=== PATIENT | male | born 1960 | race African-American/Black ===

== ENCOUNTER 2024-03-08 17:48 | Inpatient (IN) | payer MEDICARE ==
[~2024-03-08] VITALS: Ht 182.9 cm; Wt 116.6 kg
[2024-03-08] MEDS ORDERED: VERAPAMIL HCL 2.5 MG/1 ML 2ML VIAL IV ONE (17:57)
[2024-03-08] MEDS ORDERED: DIPHENHYDRAMINE 50MG/ML VIAL ONE (17:57)
[2024-03-08] MEDS ORDERED: EPINEPHRINE 0.1MG/ML (1:10,000) 10ML SYR ONE (17:57)
[2024-03-08] MEDS ORDERED: IODIXANOL 320MG/ML 100 ML BOTTLE IV ONE (17:58)
[2024-03-08] MEDS ORDERED: LIDOCAINE HCL 1% 20ML VIAL ONE (17:58)
[2024-03-08] MEDS ORDERED: MIDAZOLAM HCL 2 MG/2 ML VIAL ONE ×4 (17:58→20:36)
[2024-03-08] MEDS ORDERED: HEPARIN 1,000 UNITS PREMIX 1,500 ML IV ONE (17:58)
[2024-03-08] MEDS ORDERED: ATROPINE SULFATE 1MG/10ML SYR ONE (17:58)
[2024-03-08] MEDS ORDERED: FENTANYL CITRATE/PF 50MCG/ML 2ML VIAL ONE ×2 (17:58→20:23)
[2024-03-08] MEDS ORDERED: HEPARIN 1000 UNITS/ML 10ML ONE ×3 (17:58→19:51)
[2024-03-08] MEDS: AMIODARONE HCL 50MG/ML 3ML VIAL IV ONE (18:08)
[2024-03-08] MEDS ORDERED: DIGOXIN 500MCG/2ML AMP IV NR (18:11)
[2024-03-08] MEDS: ADENOSINE 3 MG/ML 2ML VIAL IV ONE ×2 (18:27)
[2024-03-08] MEDS ORDERED: DIGOXIN 500MCG/2ML AMP IV ONE (18:30)
[2024-03-08] MEDS ORDERED: METOPROLOL TARTRATE 5MG/5ML VIAL IV ONE (18:36)
[2024-03-08] MEDS ORDERED: AMIODARONE HCL 50MG/ML 3ML VIAL IV ONE (18:39)
[2024-03-08] MEDS ORDERED: AMIODARONE HCL 900 MG in DEXT 5% WATER 500 ML IV PRN (18:45)
[2024-03-08 19:06] LABS: BASOPHILS % 0.3 % (0.0-2.0); HEMATOCRIT. 45.3 % (42.0-52.0); HEMOGLOBIN. 14.9 g/dL (14.0-18.0); LYMPHOCYTES % 8.8 % (20.0-50.0); MEAN CORPUSCULAR HGB CONC 32.8 g/dL (31.0-37.0); MEAN CORPUSCULAR VOLUME 82.4 fL (80.0-94.0); MEAN PLATELET VOLUME 9.2 fl (7.4-10.4); MONOCYTES % 12.1 % (2.0-8.0); NEUTROPHILS % 78.8 % (40.0-76.0); PLATELET 282 x1000/uL (130-400); RED CELL DISTRIBUTION WIDTH 15.2 % (11.6-14.6); WHITE BLOOD COUNT 15.9 x1000/uL (4.5-11.0)
[2024-03-08 19:15] VITALS: PULSE 111; RESP 21
[2024-03-08 19:19] LABS: CHLORIDE 98 mEq/L (98-107); POTASSIUM 3.1 mEq/L (3.5-5.1); SODIUM 135 mEq/L (136-145)
[2024-03-08 19:20] LABS: CALCIUM 9.4 mg/dL (8.7-10.4); CARBON DIOXIDE 22 mEq/L (21-32)
[2024-03-08 19:21] LABS: INR 1.1; PARTIAL THROMBOPLASTIN TIME 27.1 sec (23.4-31.0); PROTHROMBIN TIME 11.9 sec (9.6-11.0)
[2024-03-08 19:25] LABS: CREATININE 1.3 mg/dL (0.6-1.3); GLUCOSE 162 mg/dL (70-105); UREA NITROGEN BLOOD 17 mg/dL (9-23)
[2024-03-08 19:27] LABS: ALANINE AMINOTRANSFERASE 57 IU/L (10-49); ALBUMIN 4.2 g/dL (3.2-4.8); ASPARTATE AMINOTRANSFERASE 155 IU/L (<34); BILIRUBIN TOTAL 1.5 mg/dL (0.1-1.0); PROTEIN TOTAL 7.1 g/dL (6.0-8.3)
[2024-03-08] MEDS ORDERED: IODIXANOL 320 MG/ML 150ML BOTTLE IV ONE (19:28)
[2024-03-08 19:49] LABS: TROPONIN I HIGH SENSITIVITY 20057 ng/L (3.0-53)
[2024-03-08] MEDS ORDERED: TICAGRELOR 90 MG TABLET PO ONE (19:50)
[2024-03-08] MEDS ORDERED: HYDRALAZINE 20MG/ML VIAL ONE (19:56)
[2024-03-08] MEDS ORDERED: ACETAMINOPHEN 325MG TABLET PO PRN (20:00)
[2024-03-08] MEDS ORDERED: ATROPINE SULFATE 1MG/10ML SYR IV PRN (20:00)
[2024-03-08] MEDS ORDERED: CEFAZOLIN SODIUM 1000MG/VIAL ONE (20:01)
[2024-03-08] MEDS ORDERED: PROPOFOL 200MG/20ML VIAL IV PRN (20:45)
[2024-03-08] MEDS ORDERED: PROPOFOL 10MG/ML 100ML 100 ML IV PRN (20:51)
[2024-03-08] MEDS ORDERED: PROPOFOL 10MG/ML 100ML 100 ML IV ONE (20:57)
[2024-03-08] MEDS: METOPROLOL TARTRATE 25MG TABLET PO SCH (21:00)
[2024-03-08 22:00] VITALS: PULSE 108; RESP 22
[2024-03-08 22:33] VITALS: BP 131/89; PULSE 100; RESP 15; TEMP 98.6
[2024-03-08 22:53] LABS: BG BASE EXCESS -1.1 mmol/L (-2.0-2.0); BG CARBOXYHEMOGLOBIN 0.5 % (0.5-1.5); BG DEOXYHEMOGLOBIN 14.1 % (0.0-5.0); BG FRACTION INSPIRED OXYGEN 90; BG HCO3 ACT 23.9 mmol/L (22.0-26.0); BG METHEMOGLOBIN 0.2 % (0.0-1.5); BG OXYGEN SATURATION 85.8 % (92.0-98.5); BG OXYHEMOGLOBIN 85.2 % (94.0-97.0); BG PCO2 41.4 mmHg (35.0-45.0); BG PO2 55.6 mmHg (75.0-100.0); BG SAMPLE SITE RIGHT RADIAL; BG TOTAL HEMOGLOBIN 14.7 g/dL (12.0-18.0); BG VENT MODE VENT - AC
[2024-03-08 23:55] VITALS: PULSE 99; RESP 24
[2024-03-09] VITALS (108 sets, daily range): BP systolic 78–137; BP diastolic 60–97; PULSE 90–176; RESP 17–29; TEMP 97.1–99.2
[2024-03-09 00:29] LABS: TROPONIN I HIGH SENSITIVITY 90165 ng/L (3.0-53)
[2024-03-09] MEDS: PROPOFOL 10MG/ML 100ML 100 ML IV PRN (02:19)
[2024-03-09] MEDS: NOREPINEPHRINE 8MG/250ML PMX 250 ML IV PRN (02:22)
[2024-03-09] MEDS: KCL 20MEQ/100ML PREMIX 100 ML IV SCH (05:00)
[2024-03-09 05:03] LABS: BASOPHILS % 0.1 % (0.0-2.0); HEMATOCRIT. 40.7 % (42.0-52.0); HEMOGLOBIN. 13.3 g/dL (14.0-18.0); LYMPHOCYTES % 9.1 % (20.0-50.0); MEAN CORPUSCULAR HEMOGLOBIN 26.9 pg (28.0-32.0); MEAN CORPUSCULAR HGB CONC 32.6 g/dL (31.0-37.0); MEAN CORPUSCULAR VOLUME 82.4 fL (80.0-94.0); MEAN PLATELET VOLUME 8.7 fl (7.4-10.4); MONOCYTES % 12.2 % (2.0-8.0); NEUTROPHILS % 78.6 % (40.0-76.0); PLATELET 234 x1000/uL (130-400); RED BLOOD CELL COUNT 4.94 mill/uL (4.7-6.1); RED CELL DISTRIBUTION WIDTH 15.1 % (11.6-14.6); WHITE BLOOD COUNT 13.1 x1000/uL (4.5-11.0)
[2024-03-09 05:11] LABS: CHLORIDE 100 mEq/L (98-107); POTASSIUM 2.9 mEq/L (3.5-5.1); SODIUM 138 mEq/L (136-145)
[2024-03-09 05:12] LABS: CALCIUM 8.5 mg/dL (8.7-10.4); CARBON DIOXIDE 26 mEq/L (21-32)
[2024-03-09 05:17] LABS: CREATININE 0.8 mg/dL (0.6-1.3); GLUCOSE 137 mg/dL (70-105)
[2024-03-09 05:18] LABS: UREA NITROGEN BLOOD 14 mg/dL (9-23)
[2024-03-09 05:20] LABS: PHOSPHORUS 2.4 mg/dL (2.5-4.9)
[2024-03-09] MEDS ORDERED: METOPROLOL TARTRATE 5MG/5ML VIAL IV PRN (08:30)
[2024-03-09] MEDS: AMIODARONE HCL 150 MG in DEXT 5% WATER 97 ML IV ONE (08:43)
[2024-03-09] MEDS: METOPROLOL TARTRATE 50MG TABLET PO SCH (08:44)
[2024-03-09] MEDS: ASPIRIN 325MG TABLET PO SCH (08:44)
[2024-03-09] MEDS: AMIODARONE 150MG/100ML 100 ML IV NR (08:49)
[2024-03-09 09:38] LABS: BG BASE EXCESS 1.9 mmol/L (-2.0-2.0); BG CARBOXYHEMOGLOBIN 0.2 % (0.5-1.5); BG DEOXYHEMOGLOBIN 0.3 % (0.0-5.0); BG FRACTION INSPIRED OXYGEN 100; BG HCO3 ACT 24.6 mmol/L (22.0-26.0); BG METHEMOGLOBIN 0.3 % (0.0-1.5); BG OXYGEN SATURATION 99.7 % (92.0-98.5); BG OXYHEMOGLOBIN 99.2 % (94.0-97.0); BG PCO2 33.3 mmHg (35.0-45.0); BG PH 7.487 (7.350-7.450); BG PO2 377.9 mmHg (75.0-100.0); BG SAMPLE SITE RIGHT RADIAL; BG TOTAL HEMOGLOBIN 15.5 g/dL (12.0-18.0); BG VENT MODE VENT - AC
[2024-03-09] MEDS: TICAGRELOR 90 MG TABLET PO SCH (10:05)
[2024-03-09] MEDS: AMIODARONE HCL 900 MG in DEXT 5% WATER 482 ML IV PRN (10:44)
[2024-03-09] MEDS: KCL 10MEQ/50ML PREMIX 50 ML IV SCH (10:52)
[2024-03-09] MEDS ORDERED: PHENYLEPHRINE 50MG/250ML PMX 250 ML IV PRN (11:30)
[2024-03-09] MEDS: PANTOPRAZOLE SODIUM 40 MG/VIAL IV SCH (13:13)
[2024-03-09 15:18] LABS: CHLORIDE 102 mEq/L (98-107); POTASSIUM 3.5 mEq/L (3.5-5.1); SODIUM 138 mEq/L (136-145)
[2024-03-09 15:19] LABS: CARBON DIOXIDE 25 mEq/L (21-32)
[2024-03-09] MEDS: CEFTRIAXONE 2GM/50ML 50 ML IV SCH (19:53)
[2024-03-10] VITALS (103 sets, daily range): BP systolic 82–128; BP diastolic 58–92; PULSE 86–125; RESP 0–37; TEMP 98.3–100.1
[2024-03-10] MEDS: PROPOFOL 10MG/ML 100ML 100 ML IV PRN (00:07)
[2024-03-10 05:01] LABS: CARBON DIOXIDE 25 mEq/L (21-32); CHLORIDE 102 mEq/L (98-107); POTASSIUM 3.1 mEq/L (3.5-5.1); SODIUM 138 mEq/L (136-145)
[2024-03-10 05:02] LABS: CALCIUM 8.4 mg/dL (8.7-10.4)
[2024-03-10 05:07] LABS: CREATININE 0.8 mg/dL (0.6-1.3); GLUCOSE 133 mg/dL (70-105); TRIGLYCERIDE 219 mg/dL (0-150); UREA NITROGEN BLOOD 12 mg/dL (9-23)
[2024-03-10 05:35] LABS: HEMATOCRIT. 38.5 % (42.0-52.0); HEMOGLOBIN. 12.6 g/dL (14.0-18.0); MEAN CORPUSCULAR HEMOGLOBIN 27.2 pg (28.0-32.0); MEAN CORPUSCULAR HGB CONC 32.9 g/dL (31.0-37.0); MEAN CORPUSCULAR VOLUME 82.8 fL (80.0-94.0); PLATELET 190 x1000/uL (130-400); RED BLOOD CELL COUNT 4.65 mill/uL (4.7-6.1); RED CELL DISTRIBUTION WIDTH 15.8 % (11.6-14.6); WHITE BLOOD COUNT 9.6 x1000/uL (4.5-11.0)
[2024-03-10 07:55] LABS: DIFFERENTIAL COMMENT 1
[2024-03-10 08:29] LABS: BG BASE EXCESS 2.8 mmol/L (-2.0-2.0); BG CARBOXYHEMOGLOBIN 0.1 % (0.5-1.5); BG DEOXYHEMOGLOBIN 2.4 % (0.0-5.0); BG HCO3 ACT 25.9 mmol/L (22.0-26.0); BG METHEMOGLOBIN 0.1 % (0.0-1.5); BG OXYGEN SATURATION 97.6 % (92.0-98.5); BG OXYHEMOGLOBIN 97.4 % (94.0-97.0); BG PCO2 34.7 mmHg (35.0-45.0); BG PO2 99.6 mmHg (75.0-100.0); BG SAMPLE SITE RIGHT RADIAL; BG VENT MODE VENT - AC
[2024-03-10] MEDS ORDERED: LIDOCAINE HCL 1% 10 MG/ML 10ML VIAL ONE (08:39)
[2024-03-10] MEDS: POTASSIUM PHOSPHATE 30 MMOL in DEXT 5% WATER 490 ML IV NR (09:20)
[2024-03-10] MEDS: ASPIRIN 81MG TABLET PO SCH (09:20)
[2024-03-10 15:21] LABS: CLARITY URINE CLOUDY (CLEAR); COLOR URINE DARK YELLOW (YELLOW); GLUCOSE URINE NEGATIVE (NEGATIVE); KETONES URINE 1+ (NEGATIVE); LEUKOCYTE ESTERASE URINE 1+ (NEGATIVE); NITRITE URINE NEGATIVE (NEGATIVE); OCCULT BLOOD URINE 2+ (NEGATIVE); PROTEIN URINE 1+ (NEGATIVE); SPECIFIC GRAVITY URINE 1.039 (1.005-1.030)
[2024-03-10 15:49] LABS: BACTERIA URINE 2+; SQUAMOUS EPITHELIAL CELL URINE 1+ /lpf (RARE/1+)
[2024-03-10 15:50] LABS: RBC URINE 25-50 /hpf (0-2)
[2024-03-10 15:51] LABS: AMORPHOUS SEDIMENT URINE 1+ /lpf
[2024-03-10 18:48] LABS: PLATELET ESTIMATE NORMAL
[2024-03-11] VITALS (73 sets, daily range): BP systolic 99–137; BP diastolic 61–92; PULSE 78–109; RESP 21–32; TEMP 98.6–99.5
[2024-03-11] MEDS: PROPOFOL 10MG/ML 100ML 100 ML IV PRN (02:48)
[2024-03-11 04:51] LABS: BASOPHILS % 0.2 % (0.0-2.0); HEMATOCRIT. 37.1 % (42.0-52.0); HEMOGLOBIN. 12.1 g/dL (14.0-18.0); LYMPHOCYTES % 9.7 % (20.0-50.0); MEAN CORPUSCULAR HEMOGLOBIN 27.2 pg (28.0-32.0); MEAN CORPUSCULAR HGB CONC 32.6 g/dL (31.0-37.0); MEAN CORPUSCULAR VOLUME 83.5 fL (80.0-94.0); MONOCYTES % 13.6 % (2.0-8.0); NEUTROPHILS % 75.5 % (40.0-76.0); PLATELET 185 x1000/uL (130-400); RED BLOOD CELL COUNT 4.44 mill/uL (4.7-6.1); RED CELL DISTRIBUTION WIDTH 15.5 % (11.6-14.6); WHITE BLOOD COUNT 9.9 x1000/uL (4.5-11.0)
[2024-03-11 05:07] LABS: CARBON DIOXIDE 27 mEq/L (21-32); CHLORIDE 101 mEq/L (98-107); POTASSIUM 3.1 mEq/L (3.5-5.1); SODIUM 138 mEq/L (136-145)
[2024-03-11 05:08] LABS: CALCIUM 8.3 mg/dL (8.7-10.4)
[2024-03-11 05:12] LABS: CREATININE 0.7 mg/dL (0.6-1.3); GLUCOSE 132 mg/dL (70-105)
[2024-03-11 05:13] LABS: TRIGLYCERIDE 211 mg/dL (0-150); UREA NITROGEN BLOOD 10 mg/dL (9-23)
[2024-03-11] MEDS: AMIODARONE HCL 200 MG TABLET PO SCH (09:31)
[2024-03-11] MEDS: POTASSIUM CHLORIDE 20MEQ TABLET SR PO NR (10:48)
[2024-03-11 12:09] LABS: BG BASE EXCESS 1.2 mmol/L (-2.0-2.0); BG CALCIUM 1.11 mmol/L (1.13-1.32); BG CHLORIDE 102 mmol/L (98-106); BG FRACTION INSPIRED OXYGEN 40; BG HCO3 ACT 23.9 mmol/L (22.0-26.0); BG METHEMOGLOBIN 0.6 % (0.0-1.5); BG OXYHEMOGLOBIN 97.4 % (94.0-97.0); BG PCO2 32.2 mmHg (35.0-45.0); BG PH 7.489 (7.350-7.450); BG PO2 106.6 mmHg (75.0-100.0); BG POTASSIUM 3.44 mmol/L (3.50-5.30); BG SAMPLE SITE RIGHT RADIAL; BG SODIUM 138.3 mmol/L (135.0-148.0); BG TOTAL HEMOGLOBIN 12.7 g/dL (12.0-18.0); BG VENT MODE VENT - SIMV
[2024-03-11] MEDS: LOSARTAN 25 MG TABLET PO SCH (15:35)
[2024-03-11] MEDS: FUROSEMIDE 40MG/4ML VIAL IVP SCH (15:36)
[2024-03-11] MEDS: SPIRONOLACTONE 25 MG/5 ML ORAL.SUSP NG SCH (15:46)
[2024-03-11] MEDS ORDERED: SPIRONOLACTONE 50MG TABLET PO SCH (16:00)
[2024-03-11 19:08] LABS: QFT MITOGEN VALUE 4.31 IU/mL (.); QFT TB GOLD PLUS Positive (Negative); QFT TB1 AG VALUE 0.51 IU/mL (.); QFT TB2 AG VALUE 0.77 IU/mL (.)
[2024-03-12] VITALS (68 sets, daily range): BP systolic 103–163; BP diastolic 61–93; PULSE 72–110; RESP 21–33; TEMP 98.2–99.5
[2024-03-12] MEDS: PROPOFOL 10MG/ML 100ML 100 ML IV PRN ×2 (01:14→23:19)
[2024-03-12 04:22] LABS: BASOPHILS % 0.1 % (0.0-2.0); EOSINOPHILS % 1.4 % (0.0-5.0); HEMATOCRIT. 37.9 % (42.0-52.0); HEMOGLOBIN. 12.3 g/dL (14.0-18.0); LYMPHOCYTES % 8.4 % (20.0-50.0); MEAN CORPUSCULAR HGB CONC 32.4 g/dL (31.0-37.0); MEAN CORPUSCULAR VOLUME 83.3 fL (80.0-94.0); MONOCYTES % 12.2 % (2.0-8.0); NEUTROPHILS % 77.9 % (40.0-76.0); PLATELET 213 x1000/uL (130-400); RED BLOOD CELL COUNT 4.55 mill/uL (4.7-6.1); RED CELL DISTRIBUTION WIDTH 15.7 % (11.6-14.6); WHITE BLOOD COUNT 9.7 x1000/uL (4.5-11.0)
[2024-03-12 04:28] LABS: CARBON DIOXIDE 27 mEq/L (21-32); CHLORIDE 102 mEq/L (98-107); POTASSIUM 3.2 mEq/L (3.5-5.1); SODIUM 139 mEq/L (136-145)
[2024-03-12 04:30] LABS: CALCIUM 8.6 mg/dL (8.7-10.4)
[2024-03-12 04:34] LABS: CREATININE 0.7 mg/dL (0.6-1.3); GLUCOSE 108 mg/dL (70-105); TRIGLYCERIDE 191 mg/dL (0-150); UREA NITROGEN BLOOD 10 mg/dL (9-23)
[2024-03-12 08:43] LABS: BG BASE EXCESS 2.9 mmol/L (-2.0-2.0); BG CARBOXYHEMOGLOBIN 0.3 % (0.5-1.5); BG DEOXYHEMOGLOBIN 2.4 % (0.0-5.0); BG FRACTION INSPIRED OXYGEN 40; BG HCO3 ACT 26.3 mmol/L (22.0-26.0); BG OXYGEN SATURATION 97.6 % (92.0-98.5); BG OXYHEMOGLOBIN 97.3 % (94.0-97.0); BG PH 7.481 (7.350-7.450); BG PO2 112.2 mmHg (75.0-100.0); BG SAMPLE SITE RIGHT RADIAL; BG TOTAL HEMOGLOBIN 12.9 g/dL (12.0-18.0); BG VENT MODE VENT - SIMV
[2024-03-12] MEDS: KCL 20MEQ/100ML PREMIX 100 ML IV SCH (10:11)
[2024-03-13] VITALS (79 sets, daily range): BP systolic 102–155; BP diastolic 58–94; PULSE 75–131; RESP 20–33; TEMP 98.2–99.3; O2SAT 99
[2024-03-13 05:23] LABS: CHLORIDE 103 mEq/L (98-107); POTASSIUM 3.6 mEq/L (3.5-5.1); SODIUM 140 mEq/L (136-145)
[2024-03-13 05:24] LABS: CALCIUM 8.8 mg/dL (8.7-10.4); CARBON DIOXIDE 27 mEq/L (21-32)
[2024-03-13 05:29] LABS: CREATININE 0.7 mg/dL (0.6-1.3); GLUCOSE 127 mg/dL (70-105); TRIGLYCERIDE 197 mg/dL (0-150); UREA NITROGEN BLOOD 13 mg/dL (9-23)
[2024-03-13 05:35] LABS: HEMATOCRIT. 40.1 % (42.0-52.0); HEMOGLOBIN. 12.6 g/dL (14.0-18.0); MEAN CORPUSCULAR HEMOGLOBIN 26.1 pg (28.0-32.0); MEAN CORPUSCULAR HGB CONC 31.4 g/dL (31.0-37.0); MEAN CORPUSCULAR VOLUME 83.4 fL (80.0-94.0); MEAN PLATELET VOLUME 8.8 fl (7.4-10.4); PLATELET 221 x1000/uL (130-400); RED BLOOD CELL COUNT 4.81 mill/uL (4.7-6.1); RED CELL DISTRIBUTION WIDTH 15.3 % (11.6-14.6); WHITE BLOOD COUNT 11.4 x1000/uL (4.5-11.0)
[2024-03-13 05:38] LABS: DIFFERENTIAL COMMENT 1
[2024-03-13 06:15] LABS: GIANT PLATELETS FEW; PLATELET ESTIMATE NORMAL
[2024-03-13 06:16] LABS: TEAR DROP CELLS 2+
[2024-03-13 10:55] LABS: BG BASE EXCESS 5.2 mmol/L (-2.0-2.0); BG CARBOXYHEMOGLOBIN 0.3 % (0.5-1.5); BG DEOXYHEMOGLOBIN 1.9 % (0.0-5.0); BG FRACTION INSPIRED OXYGEN 40; BG HCO3 ACT 28.5 mmol/L (22.0-26.0); BG OXYGEN SATURATION 98.1 % (92.0-98.5); BG OXYHEMOGLOBIN 97.8 % (94.0-97.0); BG PCO2 37.3 mmHg (35.0-45.0); BG PH 7.501 (7.350-7.450); BG PO2 101.1 mmHg (75.0-100.0); BG SAMPLE SITE LEFT RADIAL; BG TOTAL HEMOGLOBIN 14.6 g/dL (12.0-18.0); BG VENT MODE VENT - CPAP
[2024-03-14] VITALS (71 sets, daily range): BP systolic 74–155; BP diastolic 50–129; PULSE 71–109; RESP 7–35; TEMP 98.2–98.5
[2024-03-14 12:30] LABS: BASOPHILS % 0.8 % (0.0-2.0); EOSINOPHILS % 3.1 % (0.0-5.0); HEMATOCRIT. 41.5 % (42.0-52.0); HEMOGLOBIN. 13.3 g/dL (14.0-18.0); LYMPHOCYTES % 8.1 % (20.0-50.0); MEAN CORPUSCULAR HEMOGLOBIN 26.5 pg (28.0-32.0); MEAN CORPUSCULAR VOLUME 82.9 fL (80.0-94.0); MEAN PLATELET VOLUME 8.5 fl (7.4-10.4); MONOCYTES % 8.8 % (2.0-8.0); NEUTROPHILS % 79.2 % (40.0-76.0); PLATELET 271 x1000/uL (130-400); RED BLOOD CELL COUNT 5.01 mill/uL (4.7-6.1); WHITE BLOOD COUNT 8.8 x1000/uL (4.5-11.0)
[2024-03-15] VITALS: BP 151/75; PULSE 77; RESP 20; TEMP 97.5
[2024-03-15 04:00] VITALS: BP 134/80; PULSE 91; RESP 18; TEMP 97.7
[2024-03-15 08:00] VITALS: BP 169/88; PULSE 90; RESP 18; TEMP 98.1
[2024-03-15 12:00] VITALS: BP 111/64; PULSE 80; RESP 18; TEMP 97.6
[2024-03-15 16:00] VITALS: BP 136/92; PULSE 86; RESP 18; TEMP 97.7
[2024-03-15 20:00] VITALS: BP 115/85; PULSE 95; RESP 18; TEMP 98.3
[2024-03-16] VITALS: BP 117/73; PULSE 107; RESP 17; TEMP 98.1
[2024-03-16 08:00] VITALS: BP 109/61; PULSE 88; RESP 18; TEMP 96.6
[2024-03-16 12:00] VITALS: BP 136/75; PULSE 82; RESP 18; TEMP 96.8
[2024-03-16 16:00] VITALS: BP 125/68; PULSE 78; RESP 18; TEMP 96.1
[2024-03-16 20:00] VITALS: BP 118/60; PULSE 90; RESP 18; TEMP 97.9
[2024-03-16] MEDS ORDERED: LOSA25TA26 PO (20:09)
[2024-03-16] MEDS ORDERED: TICA90TA PO (20:09)
[2024-03-16] MEDS ORDERED: AMI2 PO (20:09)
[2024-03-16] MEDS ORDERED: ASPI-1160 PO (20:09)
[2024-03-16] MEDS ORDERED: FURO-151 MT (20:09)
[2024-03-16] MEDS ORDERED: METO-539 PO (20:09)
[2024-03-16] MEDS ORDERED: SPIR25TA6 MT (20:09)
[2024-03-16] MEDS: MICONAZOLE NITRATE 2% OINT 71GM TOP SCH (21:35)
[2024-03-17] VITALS: BP 129/81; PULSE 90; RESP 18; TEMP 97.6
[2024-03-17 04:00] VITALS: BP 135/74; PULSE 82; RESP 18; TEMP 97.9
[2024-03-17 08:00] VITALS: BP 120/73; PULSE 83; RESP 18; TEMP 97.7
[2024-03-17 12:00] VITALS: BP 119/71; PULSE 73; RESP 18; TEMP 97.1
[2024-03-17 16:00] VITALS: BP 123/76; PULSE 72; RESP 18; TEMP 97.7
[2024-03-17 20:00] VITALS: BP 133/71; PULSE 84; RESP 18; TEMP 97.3
[2024-03-17] MEDS: ATORVASTATIN CALCIUM 40MG TABLET PO SCH (20:45)
[2024-03-18] VITALS: BP 154/88; PULSE 84; RESP 20; TEMP 97
[2024-03-18 04:00] VITALS: BP 164/89; PULSE 80; RESP 17; TEMP 97
[2024-03-18 08:00] VITALS: BP 130/69; PULSE 60; RESP 20; TEMP 98.1
[2024-03-18 12:00] VITALS: BP 120/77; PULSE 70; RESP 18; TEMP 97.9
[2024-03-18 16:00] VITALS: BP 96/54; PULSE 60; RESP 18; TEMP 98.1
[2024-03-18 20:00] VITALS: BP 127/79; PULSE 85; RESP 18; TEMP 97.2
[2024-03-19] VITALS: BP 105/58; PULSE 78; RESP 18; TEMP 97.9
[2024-03-19 04:00] VITALS: BP 146/58; PULSE 72; RESP 18; TEMP 97.5
[2024-03-19 08:00] VITALS: BP_SYST 106; BP_SYST 113; BP_DIAS 73; PULSE 94; RESP 18; TEMP 97.5
[2024-03-19] MEDS: SPIRONOLACTONE 50MG TABLET PO SCH (09:27)
[2024-03-19 12:09] VITALS: BP 112/68; PULSE 70; RESP 18; TEMP 97.4
[2024-03-19 13:02] LABS: CHLORIDE 100 mEq/L (98-107); POTASSIUM 3.9 mEq/L (3.5-5.1); SODIUM 134 mEq/L (136-145)
[2024-03-19 13:03] LABS: CALCIUM 9.3 mg/dL (8.7-10.4); CARBON DIOXIDE 25 mEq/L (21-32)
[2024-03-19 13:08] LABS: CREATININE 0.6 mg/dL (0.6-1.3); GLUCOSE 200 mg/dL (70-105); UREA NITROGEN BLOOD 10 mg/dL (9-23)
[2024-03-19 16:03] VITALS: BP 112/84; PULSE 72; RESP 18; TEMP 97.6
[2024-03-19 20:00] VITALS: BP 140/87; PULSE 80; RESP 18; TEMP 96.8
[2024-03-20] VITALS: BP 143/80; PULSE 63; RESP 18; TEMP 97.5
[2024-03-20 04:00] VITALS: BP 133/88; PULSE 71; RESP 18; TEMP 97.7
[2024-03-20 08:00] VITALS: BP 124/58; PULSE 78; RESP 15; TEMP 97.9
[2024-03-20 12:00] VITALS: BP 100/64; PULSE 66; RESP 15; TEMP 97.7
[2024-03-20 16:00] VITALS: BP 141/75; PULSE 75; RESP 15; RESP 18; TEMP 97.8
[2024-03-20 20:00] VITALS: BP 110/60; PULSE 82; RESP 18; TEMP 97.5
[2024-03-21] VITALS: BP 108/66; PULSE 69; RESP 18; TEMP 97.7
[2024-03-21 08:00] VITALS: BP 132/77; PULSE 82; RESP 15; TEMP 98.1
[2024-03-21 12:00] VITALS: BP 100/65; PULSE 64; RESP 15; TEMP 97.6
[2024-03-21] MEDS: ACETAMINOPHEN 650MG/20.3ML UDC NG PRN (15:19)
[2024-03-21 16:00] VITALS: BP 115/78; PULSE 78; RESP 15; TEMP 98
[2024-03-22 08:00] VITALS: BP 112/71; PULSE 82; RESP 15; TEMP 98.1
[2024-03-22 12:00] VITALS: BP 95/57; PULSE 65; RESP 15; TEMP 97.9
[2024-03-22 16:00] VITALS: BP 111/57; PULSE 72; RESP 18; TEMP 98.6
== END 2024-03-22 18:49 | disposition home or self-care (01) | DRG 321 ==
LOC: ER 17:48 → EDBEDREQ 19:09 → EDBEDREQTM 19:09 → EDBEDREQ 19:10 → MICUNO 21:33 → 8WST 03-14 22:46
PROVIDERS: ADMIT Internal Medicine; ATTEND Internal Medicine
PROC: 027034Z Dilation of Coronary Artery, One Artery with Drug-eluting Intraluminal Device, Percutaneous Approach (ICD-10-PCS; principal; 2024-03-08)
PROC: 0BH17EZ Insertion of Endotracheal Airway into Trachea, Via Natural or Artificial Opening (ICD-10-PCS; 2024-03-08)
PROC: 4A023N7 Measurement of Cardiac Sampling and Pressure, Left Heart, Percutaneous Approach (ICD-10-PCS; 2024-03-08)
PROC: 5A12012 Performance of Cardiac Output, Single, Manual (ICD-10-PCS; 2024-03-08)
PROC: 5A1955Z Respiratory Ventilation, Greater than 96 Consecutive Hours (ICD-10-PCS; 2024-03-08)
PROC: 027035Z Dilation of Coronary Artery, One Artery with Two Drug-eluting Intraluminal Devices, Percutaneous Approach (ICD-10-PCS; 2024-03-08)
PROC: 06HY33Z Insertion of Infusion Device into Lower Vein, Percutaneous Approach (ICD-10-PCS; 2024-03-08)
PROC: B54BZZA Ultrasonography of Right Lower Extremity Veins, Guidance (ICD-10-PCS; 2024-03-08)
PROC: B211YZZ Fluoroscopy of Multiple Coronary Arteries using Other Contrast (ICD-10-PCS; 2024-03-08)
PROC: 02HV33Z Insertion of Infusion Device into Superior Vena Cava, Percutaneous Approach (ICD-10-PCS; 2024-03-10)
PROC: B548ZZA Ultrasonography of Superior Vena Cava, Guidance (ICD-10-PCS; 2024-03-10)
DX: I21.09 ST elevation (STEMI) myocardial infarction involving other coronary artery of anterior wall (principal); I50.21 Acute systolic (congestive) heart failure; J96.01 Acute respiratory failure with hypoxia; I47.10 Supraventricular tachycardia, unspecified; I97.710 Intraoperative cardiac arrest during cardiac surgery; N39.0 Urinary tract infection, site not specified; D72.829 Elevated white blood cell count, unspecified; I11.0 Hypertensive heart disease with heart failure; I25.10 Atherosclerotic heart disease of native coronary artery without angina pectoris; Y84.0 Cardiac catheterization as the cause of abnormal reaction of the patient, or of later complication, without mention of misadventure at the time of the procedure; E11.9 Type 2 diabetes mellitus without complications; E78.00 Pure hypercholesterolemia, unspecified; I48.91 Unspecified atrial fibrillation; E87.6 Hypokalemia; Y92.238 Other place in hospital as the place of occurrence of the external cause; Z22.7 Latent tuberculosis
CPT/HCPCS: 31500; 36415; 36573; 36600; 71045; 80048; 80051; 80053; 80061; 81003; 82375; 82805; 82962; 83735; 83880; 84100; 84145; 84443; 84478; 84484; 85025; 85347; 86480; 87116; 87556; 92928; 92929; 92950; 93005; 93306; 93458; 94002; 94003; 97116; 97162; 99291; C1725; C1769; C1874; C1887; C1893; C9113; J0153; J0282; J0360; J0461; J0690; J0696; J1160; J1200; J1644; J1940; J2250; J2470; J2704; J3010; J3480; J3490; J7060; Q9967; A4315; J8499

== ENCOUNTER 2025-05-21 20:45 | Inpatient (IN) | payer MEDICARE, MEDICAID ==
[~2025-05-21] VITALS: Ht 172.7 cm; Wt 115.7 kg
[~2025-05-21 20:45] MED LIST: AMI2 PO; APIX5TAB MT; FURO80TA87 MT; LIP40 PO; LOSA25TA26 PO; METO-539 PO; SPIR25TA6 MT; TICA90TA PO
[2025-05-21 22:24] LABS: BASOPHILS % 0.4 % (0.0-2.0); EOSINOPHILS % 0.8 % (0.0-5.0); HEMATOCRIT. 38.1 % (42.0-52.0); HEMOGLOBIN. 12.6 g/dL (14.0-18.0); LYMPHOCYTES % 17.0 % (20.0-50.0); MEAN PLATELET VOLUME 9.0 fl (7.4-10.4); MONOCYTES % 10.4 % (2.0-8.0); NEUTROPHILS % 71.4 % (40.0-76.0); PLATELET 220 x1000/uL (130-400); RED BLOOD CELL COUNT 4.71 mill/uL (4.7-6.1); RED CELL DISTRIBUTION WIDTH 14.9 % (11.6-14.6)
[2025-05-21 22:37] LABS: CREATININE 1.1 mg/dL (0.6-1.3)
[2025-05-21 22:38] LABS: TROPONIN I HIGH SENSITIVITY 16 ng/L (3.0-53); UREA NITROGEN BLOOD 13 mg/dL (9-23)
[2025-05-21 22:39] LABS: ASPARTATE AMINOTRANSFERASE 61 IU/L (<34)
[2025-05-21 22:40] LABS: BILIRUBIN DIRECT 0.3 mg/dL (<=3.0); BILIRUBIN TOTAL 1.1 mg/dL (0.1-1.0); PROTEIN TOTAL 6.1 g/dL (6.0-8.3)
[2025-05-21 23:14] LABS: TROPONIN I HIGH SENSITIVITY 20 ng/L (3.0-53)
[2025-05-22] VITALS (9 sets, daily range): BP systolic 91–129; BP diastolic 65–85; PULSE 66–119; RESP 18–34; TEMP 36.696–37; O2SAT 94–100
[2025-05-22] MEDS: FUROSEMIDE 40MG/4ML VIAL IVP ONE (00:13)
[2025-05-22] MEDS ORDERED: ONDANSETRON HCL 4MG/2ML INJ IV PRN (02:00)
[2025-05-22] MEDS ORDERED: ACETAMINOPHEN 325MG TABLET PO PRN (02:00)
[2025-05-22] MEDS ORDERED: DEXTROSE 50% WATER 50ML SYRINGE IV PRN (02:00)
[2025-05-22] MEDS ORDERED: MAGNESIUM/ALUMINUM HYDROXIDE/SIMETHICONE 30ML UDC PO PRN (02:00)
[2025-05-22] MEDS ORDERED: CLONIDINE 0.1MG TABLET PO PRN (02:00)
[2025-05-22] MEDS ORDERED: NITROGLYCERIN 0.4MG TABLET SL SL PRN (02:00)
[2025-05-22] MEDS ORDERED: DOCUSATE SODIUM 100MG CAPSULE PO PRN (02:00)
[2025-05-22] MEDS: FUROSEMIDE 40MG/4ML VIAL IV SCH (02:26)
[2025-05-22] MEDS: POTASSIUM CHLORIDE 20MEQ TABLET SR PO NR (02:37)
[2025-05-22] MEDS: IPRATROPIUM/ALBUTEROL 0.5-3(2.5)MG/3ML NEB HHN PRN (03:06)
[2025-05-22] MEDS: INSULIN LISPRO 100 UNITS/ML SUBCUT SCH (08:20)
[2025-05-22] MEDS: ASPIRIN 81MG EC TABLET PO SCH (08:27)
[2025-05-22] MEDS: APIXABAN 5 MG TABLET PO SCH (08:30)
[2025-05-22] MEDS: METOPROLOL TARTRATE 50MG TABLET PO SCH (08:30)
[2025-05-22] MEDS: NYSTATIN 100,000 UNITS/GM OINT 15GM TOP SCH (08:32)
[2025-05-22] MEDS: AMIODARONE 200MG TABLET PO SCH (08:32)
[2025-05-22] MEDS: SPIRONOLACTONE 25MG TABLET PO SCH (08:49)
[2025-05-22] MEDS: LOSARTAN 25 MG TABLET PO SCH (08:49)
[2025-05-22] MEDS: PANTOPRAZOLE SODIUM 40 MG/VIAL IV SCH (08:57)
[2025-05-22] MEDS: BLOOD SUGAR DIAGNOSTIC STRIP TEST SCH (09:00)
[2025-05-22 11:44] LABS: TRIGLYCERIDE 67.0 mg/dL (0-150)
[2025-05-22 11:45] LABS: LDL CHOLESTEROL 91.0 mg/dL (5-100)
[2025-05-22] MEDS: ATORVASTATIN CALCIUM 40MG TABLET PO SCH (20:45)
[2025-05-23] VITALS (8 sets, daily range): BP systolic 95–117; BP diastolic 68–73; PULSE 88–116; RESP 20–24; TEMP 36.1–36.6; O2SAT 94–99
[2025-05-23] MEDS: FUROSEMIDE 40MG/4ML VIAL IVP NR (04:05)
[2025-05-23] MEDS: FUROSEMIDE 40MG/4ML VIAL IVP SCH (09:11)
[2025-05-23] MEDS: AMIODARONE 200MG TABLET PO SCH (09:15)
[2025-05-23 11:52] LABS: BASOPHILS % 0.3 % (0.0-2.0); EOSINOPHILS % 0.5 % (0.0-5.0); HEMATOCRIT. 42.7 % (42.0-52.0); HEMOGLOBIN. 13.8 g/dL (14.0-18.0); LYMPHOCYTES % 17.1 % (20.0-50.0); MEAN PLATELET VOLUME 10.2 fl (7.4-10.4); MONOCYTES % 9.3 % (2.0-8.0); NEUTROPHILS % 72.8 % (40.0-76.0); PLATELET 199 x1000/uL (130-400); RED BLOOD CELL COUNT 5.19 mill/uL (4.7-6.1); RED CELL DISTRIBUTION WIDTH 15.4 % (11.6-14.6)
[2025-05-23 12:11] LABS: CREATININE 1.1 mg/dL (0.6-1.3); UREA NITROGEN BLOOD 19 mg/dL (9-23)
[2025-05-23 13:22] LABS: PHOSPHORUS 3.1 mg/dL (2.5-4.9)
[2025-05-24] VITALS (7 sets, daily range): BP systolic 96–125; BP diastolic 59–81; PULSE 80–111; RESP 18–22; TEMP 35.9–36.7; O2SAT 92–100
[2025-05-24] MEDS: ACETAMINOPHEN 325MG TABLET PO PRN (06:30)
[2025-05-24 08:11] LABS: CREATININE 1.4 mg/dL (0.6-1.3); UREA NITROGEN BLOOD 19 mg/dL (9-23)
[2025-05-24] MEDS: GUAIFENESIN 200MG/10ML SUGAR FREE UDC PO PRN (13:07)
[2025-05-24] MEDS ORDERED: LIP40 PO (13:55)
[2025-05-24] MEDS ORDERED: METO-539 PO (13:55)
[2025-05-24] MEDS ORDERED: APIX5TAB PO (13:55)
[2025-05-24] MEDS ORDERED: LOSA25TA26 PO (13:55)
[2025-05-24] MEDS ORDERED: SPIR25TA6 MT (13:55)
[2025-05-24] MEDS ORDERED: FURO-151 PO (13:55)
[2025-05-24] MEDS ORDERED: AMIO100T4 PO (13:55)
[2025-05-25 01:46] VITALS: BP 119/95; PULSE 65; RESP 18; TEMP 36.2; O2SAT 98
[2025-05-25 04:00] VITALS: BP 119/80; PULSE 71; RESP 16; TEMP 36.2; O2SAT 99
[2025-05-25 08:00] VITALS: BP 104/68; PULSE 68; RESP 20; TEMP 36.4; O2SAT 100
[2025-05-25 12:00] VITALS: BP 120/68; PULSE 68; RESP 20; TEMP 36.6; O2SAT 95
[2025-05-25 13:17] VITALS: BP 108/43; PULSE 74; RESP 18; TEMP 97.9
== END 2025-05-25 17:01 | disposition home or self-care (01) | DRG 291 ==
LOC: ER 20:45 → 7WST 23:27 → EDBEDREQTM 23:34 → EDBEDREQSVC 23:34 → EDBEDREQ 23:34 → ENRESERV 05-22 00:05
PROVIDERS: ADMIT Internal Medicine; ATTEND Internal Medicine
PROC: 5A09357 Assistance with Respiratory Ventilation, Less than 24 Consecutive Hours, Continuous Positive Airway Pressure (ICD-10-PCS; principal; 2025-05-22)
DX: I11.0 Hypertensive heart disease with heart failure (principal); I50.23 Acute on chronic systolic (congestive) heart failure; J96.01 Acute respiratory failure with hypoxia; I48.92 Unspecified atrial flutter; E11.9 Type 2 diabetes mellitus without complications; E78.5 Hyperlipidemia, unspecified; I48.91 Unspecified atrial fibrillation; L30.4 Erythema intertrigo; D64.9 Anemia, unspecified; I25.10 Atherosclerotic heart disease of native coronary artery without angina pectoris; Z79.01 Long term (current) use of anticoagulants; Z79.899 Other long term (current) drug therapy; Z86.11 Personal history of tuberculosis; Z86.74 Personal history of sudden cardiac arrest; Z95.5 Presence of coronary angioplasty implant and graft; Z99.81 Dependence on supplemental oxygen
CPT/HCPCS: 36415; 71045; 80048; 80061; 80076; 82962; 83036; 83735; 83880; 84100; 84484; 85025; 93005; 94070; 94618; 94640; 94660; 97162; 97166; 99291; A4606; J1815; J1938; J2470

== ENCOUNTER 2025-08-02 10:25 | Inpatient (IN) | payer MEDICARE, MEDICAID ==
[~2025-08-02] VITALS: Ht 172.7 cm; Wt 125.6 kg
[~2025-08-02 10:25] MED LIST changes: -AMI2 PO; -APIX5TAB MT; +APIX5TAB PO; +ASPI-1160 PO; +DIGO-34 PO; +FURO-151 PO; -FURO80TA87 MT; -LIP40 PO; -METO-539 PO; +METO25TA6 MT; -SPIR25TA6 MT; +TAMS-54 PO; -TICA90TA PO
[2025-08-02 10:33] VITALS: O2SAT 99
[2025-08-02 11:34] LABS: HEMATOCRIT. 42.9 % (42.0-52.0); HEMOGLOBIN. 13.4 g/dL (14.0-18.0); MEAN PLATELET VOLUME 8.9 fl (7.4-10.4); PLATELET 206 x1000/uL (130-400); RED BLOOD CELL COUNT 5.33 mill/uL (4.7-6.1); RED CELL DISTRIBUTION WIDTH 16.6 % (11.6-14.6)
[2025-08-02 11:55] LABS: TROPONIN I HIGH SENSITIVITY 14 ng/L (3.0-53)
[2025-08-02 12:04] LABS: CREATININE 1.3 mg/dL (0.6-1.3); UREA NITROGEN BLOOD 20 mg/dL (9-23)
[2025-08-02] MEDS: FUROSEMIDE 40MG/4ML VIAL IVP SCH ×2 (12:45→21:23)
[2025-08-02] MEDS ORDERED: HYDROCODONE/ACETAMINOPHEN 10/325MG TABLET PO PRN (13:30)
[2025-08-02] MEDS ORDERED: IPRATROPIUM/ALBUTEROL 0.5-3(2.5)MG/3ML NEB HHN PRN (13:30)
[2025-08-02] MEDS ORDERED: CLONIDINE 0.1MG TABLET PO PRN (13:30)
[2025-08-02] MEDS ORDERED: ACETAMINOPHEN 325MG TABLET PO PRN (13:30)
[2025-08-02] MEDS ORDERED: ONDANSETRON HCL 4MG/2ML INJ IV PRN (13:30)
[2025-08-02 13:43] VITALS: BP 88/65; PULSE 64; RESP 21; TEMP 36.2512
[2025-08-02 13:43] LABS: BAND% 1.0 % (1.0-6.0); LYMPHOCYTES % MANUAL 24.0 % (20.0-50.0); MONOCYTES % MANUAL 13.0 % (2.0-8.0); NEUTROPHILS % MANUAL 62.0 % (45.0-75.0)
[2025-08-02 13:44] LABS: PLATELET ESTIMATE NORMAL
[2025-08-02] MEDS ORDERED: NALOXONE HCL 0.4MG/ML VIAL IV PRN (13:45)
[2025-08-02] MEDS: ENOXAPARIN 120MG/0.8ML SYR SUBCUT SCH (14:23)
[2025-08-02] MEDS: DIGOXIN 125MCG TABLET PO SCH (17:53)
[2025-08-02 18:14] LABS: HEPATITIS C AB NON REACTIVE (Neg) (Negative)
[2025-08-02 20:00] VITALS: BP 109/76; PULSE 103; RESP 18; TEMP 36.4; TEMP 36.6; O2SAT 100
[2025-08-02] MEDS ORDERED: FUROSEMIDE 40MG/4ML VIAL IV SCH (21:00)
[2025-08-02] MEDS: ATORVASTATIN CALCIUM 40MG TABLET PO SCH (21:24)
[2025-08-03] VITALS: BP 106/85; PULSE 74; RESP 19; TEMP 36.6; O2SAT 97
[2025-08-03 04:00] VITALS: BP 110/77; PULSE 91; RESP 19; TEMP 36.6; O2SAT 98
[2025-08-03 08:00] VITALS: BP 108/74; PULSE 106; RESP 16; TEMP 36.3; O2SAT 98
[2025-08-03 08:56] LABS: HEMATOCRIT. 43.9 % (42.0-52.0); HEMOGLOBIN. 13.7 g/dL (14.0-18.0); MEAN PLATELET VOLUME 9.0 fl (7.4-10.4); PLATELET 211 x1000/uL (130-400); RED BLOOD CELL COUNT 5.54 mill/uL (4.7-6.1); RED CELL DISTRIBUTION WIDTH 16.5 % (11.6-14.6)
[2025-08-03] MEDS ORDERED: ASPIRIN 81MG TABLET PO SCH (09:00)
[2025-08-03] MEDS: LOSARTAN 25 MG TABLET PO SCH (09:00)
[2025-08-03] MEDS: TAMSULOSIN HCL 0.4MG SR CAPSULE PO SCH (09:00)
[2025-08-03 09:06] LABS: CREATININE 1.4 mg/dL (0.6-1.3); UREA NITROGEN BLOOD 24 mg/dL (9-23)
[2025-08-03 09:07] LABS: T4 FREE 1.45 ng/dL (0.89-1.76)
[2025-08-03 09:08] LABS: PHOSPHORUS 4.1 mg/dL (2.5-4.9)
[2025-08-03] MEDS: FOLIC ACID 1MG TABLET PO SCH (09:32)
[2025-08-03] MEDS: MULTIVITAMINS,THER W-MINERALS TABLET PO SCH (09:32)
[2025-08-03] MEDS: ASPIRIN 81MG TABLET PO SCH (09:33)
[2025-08-03 12:00] VITALS: BP 110/69; PULSE 61; RESP 20; TEMP 36.8; O2SAT 95
[2025-08-03 16:00] VITALS: BP 90/56; PULSE 100; RESP 18; TEMP 36.6; O2SAT 100
[2025-08-03 20:00] VITALS: BP 102/74; PULSE 103; RESP 18; TEMP 36.4; O2SAT 97
[2025-08-03 22:41] LABS: LYMPHOCYTES % MANUAL 35.0 % (20.0-50.0); MONOCYTES % MANUAL 14.0 % (2.0-8.0); NEUTROPHILS % MANUAL 51.0 % (45.0-75.0); PLATELET ESTIMATE NORMAL
[2025-08-04 00:12] VITALS: BP 108/84; PULSE 85; RESP 20; TEMP 36.1; O2SAT 92
[2025-08-04 04:00] VITALS: BP 103/74; PULSE 99; RESP 18; TEMP 36.3; O2SAT 100
[2025-08-04 08:49] VITALS: BP 116/82; PULSE 105; RESP 18; TEMP 36.6; O2SAT 98
[2025-08-04 12:39] VITALS: BP 98/69; PULSE 69; RESP 18; TEMP 37.1; O2SAT 99
[2025-08-04 16:00] VITALS: BP 112/70; PULSE 97; RESP 18; TEMP 37.1; O2SAT 18
[2025-08-04] MEDS: LEVOTHYROXINE SODIUM 25MCG TABLET PO SCH (18:07)
[2025-08-04 20:00] VITALS: BP 105/71; PULSE 86; RESP 20; TEMP 36.5; O2SAT 96
[2025-08-05] VITALS (7 sets, daily range): BP systolic 105–117; BP diastolic 40–85; PULSE 71–109; RESP 19–20; TEMP 36.1–37.2; O2SAT 92–98
[2025-08-05] MEDS: FUROSEMIDE 40MG/4ML VIAL IVP SCH ×2 (08:32→09:00)
[2025-08-05 12:31] LABS: HEMATOCRIT. 45.4 % (42.0-52.0); HEMOGLOBIN. 14.3 g/dL (14.0-18.0); MEAN PLATELET VOLUME 9.3 fl (7.4-10.4); PLATELET 211 x1000/uL (130-400); RED BLOOD CELL COUNT 5.73 mill/uL (4.7-6.1); RED CELL DISTRIBUTION WIDTH 17.0 % (11.6-14.6)
[2025-08-05 12:57] LABS: CREATININE 1.2 mg/dL (0.6-1.3); UREA NITROGEN BLOOD 16 mg/dL (9-23)
[2025-08-05 12:59] LABS: PHOSPHORUS 3.0 mg/dL (2.5-4.9)
[2025-08-05 13:29] LABS: LYMPHOCYTES % MANUAL 21.0 % (20.0-50.0); MONOCYTES % MANUAL 17.0 % (2.0-8.0); NEUTROPHILS % MANUAL 62.0 % (45.0-75.0); PLATELET ESTIMATE NORMAL
[2025-08-05] MEDS: ENOXAPARIN 120MG/0.8ML SYR SUBCUT SCH (21:20)
[2025-08-06] VITALS: BP 105/72; PULSE 100; RESP 18; TEMP 35.6; O2SAT 98
[2025-08-06 04:00] VITALS: BP 105/80; PULSE 109; RESP 20; TEMP 35.7; O2SAT 98
[2025-08-06 08:00] VITALS: BP 126/83; PULSE 103; RESP 20; TEMP 36.7; O2SAT 98
[2025-08-06] MEDS ORDERED: LEVO25TA2 MT (11:11)
[2025-08-06 12:00] VITALS: BP 110/76; PULSE 99; RESP 20; TEMP 36.7; O2SAT 98
[2025-08-06 16:00] VITALS: BP 118/84; PULSE 98; RESP 20; TEMP 36.7; O2SAT 98
[2025-08-06 16:55] VITALS: BP 130/80; PULSE 100; RESP 16; TEMP 98
== END 2025-08-06 19:20 | DRG 291 ==
LOC: ER 10:25 → 7WST 12:14 → ENRESERV 12:30
PROVIDERS: ADMIT Student in an Organized Health Care Education/Training Program; ATTEND Student in an Organized Health Care Education/Training Program
DX: I11.0 Hypertensive heart disease with heart failure (principal); I50.43 Acute on chronic combined systolic (congestive) and diastolic (congestive) heart failure; I48.92 Unspecified atrial flutter; Z99.81 Dependence on supplemental oxygen; J96.11 Chronic respiratory failure with hypoxia; I25.10 Atherosclerotic heart disease of native coronary artery without angina pectoris; I48.91 Unspecified atrial fibrillation; Z99.3 Dependence on wheelchair; Z98.61 Coronary angioplasty status
CPT/HCPCS: 36415; 71045; 73070; 73110; 80048; 83735; 83880; 84100; 84439; 84443; 84484; 85025; 86705; 87340; 93005; 93970; 99285; A4606; J1650; J1938